=== PATIENT | female | born 1965 | race Two or more races ===

== ENCOUNTER 2025-08-17 08:23 | Emergency (ER) | payer MEDICAID, OTHER ==
[~2025-08-17] VITALS: Ht 167.6 cm; Wt 126.0 kg
--- NOTE | 2025-08-17 08:33 | ED.PDOC ---
HPI (NEURO) HPI Comments 60 year old female presents to the ED with a chief complaint of RT sided weakness onset 08/14/25. Spouse states patient began experiencing headache, RT sided weakness on 3 days ago, yesterday around 12:00, she began experiencing slurred speech, loss of strength of RT arm. Last night, patient was not able to hold piece of bread with RT hand. Denies any PMHx as well as head injury, nausea, vomiting, diarrhea, chest pain, shortness of breath, fever, chills, dysuria, hematuria. No other symptoms or modifying factors present at this time. 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 Family History Family History: Reviewed,noncontributory to illness, No family hx of Cancer, No family hx of DM, No family hx of Heart aaron, No family hx of HTN, No family hx ofKidney aaron, No family hx of Liver aaron, No family hx of Lung aaron, No family hx of Stroke Social History Smoker: Non-Smoker Alcohol: Denies ETOH Use Drugs: Denies Drug Use Lives In: Home Constitutional: denies: chills, diaphoresis, fatigue, fever, malaise, sweats, weakness, others EENTM: denies: blurred vision, double vision, ear bleeding, ear discharge, ear drainage, ear pain, ear ringing, eye pain, eye redness, hearing loss, mouth pain, mouth swelling, nasal discharge, nose bleeding, nose congestion, nose pain, photophobia, tearing, throat pain, throat swelling, voice changes, others Respiratory: denies: cough, hemoptysis, orthopnea, SOB at rest, shortness of breath, SOB with excertion, stridor, wheezing, others Cardiovascular: denies: chest pain, dizzy spells, diaphoresis, Dyspnea on exer tion, edema, irregular heart beat, left arm pain, lightheadedness, palpitations, PND, syncope, others Gastrointestinal: denies: abdomen distended, abdominal pain, blood streaked bowels, constipated, diarrhea, dysphagia, difficulty swallowing, hematemesis, melena, nausea, poor appetite, poor fluid intake, rectal bleeding, rectal pain, vomiting, others Genitourinary: denies: abnormal vagina bleeding, burning, dyspareunia, dysuria, flank pain, frequency, hematuria, incontinence, pain, , vagina discharge, urgency, others Neurological: reports: right sided weakness, speech problems; denies: dizziness, fainting, headache, left sided numbness, left sided weakness, numbness, paresthesia, pre-existing deficit, right sided numbness, seizure, tingling, tremors, weakness, others Musculoskeletal: denies: back pain, gout, joint pain, joint swelling, muscle pain, muscle stiffness, neck pain, others Integumetry: denies: bruises, change in color, change in hair/nails, dryness, laceration, lesions, lumps, rash, wounds, others Allergic/Immunocompromised: denies: Difficulty Healing, Frequent Infections, Hives, Itching, others Hematologic/Lymphatic: denies: anemia, blood clots, easy bleeding, easy bruising, swollen glands, others Endocrine: denies: excessive hunger, excessive sweating, excessive thirst, excessive urination, flushing, intolerance to cold, intolerance to heat, unexplained weight gain, unexplained weight loss, others Psychiatric: denies: anxiety, bipolar disorder, depression, hopeless, panic disorder, schizophrenia, sleepless, suicidal, others All Other Systems: Reviewed and Negative Physical Exam General Appearance: Normal HEENT: Normal ENT Inspection, Pharynx Normal, TMs Normal Neck: Full Range of Motion, Non-Tender, Normal, Normal Inspection Respiratory: Chest Non-Tender, Lungs Clear, No Accessory Muscle Use, No Respiratory Distress, Normal Breath Sounds Cardiovascular: No Edema, No JVD, No Murmur, No Gallop, Normal Peripheral Pulses, Regular Rate/Rhythm Breast Exam: Deferred Gastrointestinal: No Organomegaly, Non Tender, No Pulsatile Mass, Normal Bowel Sounds, Soft Genitalia: Deferred Pelvic: Deferred Rectal: Deferred Extremities: No calf tenderness, Normal capillary refill, Normal inspection, Normal range of motion, Non-tender, No pedal edema Musculoskeletal : Apperance: Normal Neurologic: Alert, avaya engineer II-XII nml as Tested, No Motor Deficits, Normal Affect, Normal Mood, No Sensory Deficits Cerebellar Function: Normal Reflexes: Normal Skin: Dry, Normal Color, Warm Lymphatic: No Adenopathy Was a procedure done? Was a procedure done?: No Differential Diagnosis (SZ) Seizure: Hyperventilation, Hypoxemia, Idiopathic, Mass Lesion CVA: Encephalopathy, Hypoglycemia, Hypoxemia General Weakness: Encephalopathy, Hypovolemia, Myocardial infarction Headache: Post Lumber Puncture X-Ray, Labs, Meds, VS Vital Signs Date Time Temp Pulse Resp B/P (MAP) Pulse Ox O2 Delivery O2 Flow Rate FiO2 08/17/25 10:30 66 18 169/79 (109) 96 08/17/25 08:36 109 08/17/25 08:34 97.9 68 18 172/78 (109) 98 97.9 08/17/25 08:34 68 18 98 Room Air* 0 21 08/17/25 08:28 99.7 67 18 172/78 99.7 Lab Test 08/17/25 11:10 08/17/25 10:02 08/17/25 09:02 08/17/25 08:31 Range/Units Urine Color Pending Urine Clarity Pending Urine pH Pending Urine Specific [place] Pending Urine Protein Pending Urine Ketones Pending Urine Blood Pending Urine Nitrite Pending Urine Bilirubin Pending Urine Urobilinogen Pending Urine Leukocyte Esterase Pending Urine RBC Pending Urine Microscopic WBC Pending Urine Squamous Epithelial Cells Pending Urine Bacteria Pending Urine Glucose Pending Troponin I High Sensitivity < 3 L < 3 L </=34 ng/L White Blood Count 8.9 4.4-10.8 10^3/uL Red Blood Count 4.39 4.0-5.20 10^6/uL Hemoglobin 12.8 12.2-16.2 g/dL Hematocrit 38.0 36.0-46.0 % Mean Corpuscular Volume 86.5 80.0-100.0 fL Mean Corpuscular Hemoglobin 29.2 28.0-32.0 pg Mean Corpuscular Hemoglobin Concent 33.7 32.0-36.0 g/dL Red Cell Distribution Width 13.3 11.8-14.3 % Platelet Count 226 140-450 10^3/uL Mean Platelet Volume 9.4 6.9-10.8 fL Neutrophils (%) (Auto) 74.8 37.0-80.0 % Lymphocytes (%) (Auto) 17.0 10.0-50.0 % Monocytes (%) (Auto) 7.2 0.0-12.0 % Eosinophils (%) (Auto) 0.3 0.0-7.0 % Basophils (%) (Auto) 0.7 0.0-2.0 % Neutrophils # (Auto) 6.7 1.6-8.6 10 ^3/uL Lymphocytes # (Auto) 1.5 0.4-5.4 10 ^3/uL Monocytes # (Auto) 0.6 0-1.3 10 ^3/uL Eosinophils # (Auto) 0 0-0.8 10 ^3/uL Basophils # (Auto) 0.1 0-0.2 10 ^3/uL Nucleated Red Blood Cells 0.0 % Prothrombin Time 10.9 9.3-11.8 sec Prothrombin Time INR 1.03 0.9-1.15 Activated Partial Thromboplast Time 25.6 24.5-34.5 SEC Sodium Level 138 136-145 mmol/L Potassium Level 3.6 3.5-5.1 mmol/L Chloride Level 102 98-107 mmol/L Carbon Dioxide Level 26 20-31 mmol/L Anion Gap 10 5-15 Blood Urea Nitrogen 10 9-23 mg/dL Creatinine 0.69 0.550-1.02 mg/dL Glomerular Filtration Rate Calc 101 >90 mL/min BUN/Creatinine Ratio 14.5 10.0-20.0 Serum Glucose 109 H 74-106 mg/dL Lactic Acid Level 1.0 0.4-2.0 mmol/L Calcium Level 9.1 8.7-10.4 mg/dL Magnesium Level 2.2 1.6-2.6 mg/dL Total Bilirubin 0.6 0.2-1.0 mg/dL Aspartate Amino Transferase (AST) 13 13-40 U/L Alanine Aminotransferase (ALT) 16 7-40 U/L Alkaline Phosphatase 95 46-116 U/L B-Type Natriuretic Peptide 45.99 0-100 pg/mL Total Protein 7.7 5.7-8.2 g/dL Albumin 4.6 3.2-4.8 g/dL POC Glucose 116 H 70-106 mg/dl Current Medications Medications (Trade) Dose Ordered Sig/Leatha Route Start Time Stop Time Status Last Admin Acetaminophen (Tylenol Tablet) 650 mg ONCE ONCE PO 08/17/25 10:00 08/17/25 10:01 DC 08/17/25 10:08 Time of 1ST Reevaluation: 08:55 Reevaluation 1ST: Unchanged Patient Education/Counseling: Diagnosis, Treatment, Prognosis Family Education/Counseling: Diagnosis, Treatment, Prognosis Departure 1 Departure Time of Disposition: 11:45 (Patient with concern for CVA however patient is out of the window for acute neurologic intervention. We will admit patient for further workup and expert consultation) Impression: Primary Impression: Right arm weakness Additional Impressions: Difficulty with speech Generalized weakness Disposition: ADMITTED INPATIENT Admit to: Tele Condition: Guarded Critical Care Note Critical Care Time?: Yes Critical care comment: Concern for CVA Authorized and Performed by: Chandler Pereira MD Total critical care time: Approximately 38 minutes Due to a high probability of clinically significant, life threatening deterioration, the patient required my highest level of preparedness to intervene emergently and I personally spent this critical care time directly and personally managing the patient. This critical care time included obtaining a history; examining the patient; pulse oximetry; ordering and review of studies; arranging urgent treatment with development of a management plan; evaluation of patient's response to treatment; frequent reassessment; and, discussions with other providers. This critical care time was performed to assess and manage the high probability of imminent, life-threatening deterioration that could result in multi-organ failure. It was exclusive of separately billable procedures and treating other patients and teaching time. Please see my other sections and the rest of the note for further information on patient assessment and treatment. Stability Stability form required: No Heart Score Heart Score: Heart Score Response (Comments) Value History N/A 0 EKG N/A 0 Age N/A 0 Risk Factors N/A 0 Troponin N/A 0 Total 0 I personally scribed for CHANDLER PEREIRA MD ([email or web address]) on 08/17/25 at 08:33. Electronically submitted by Fiorella Clinton ([email or web address]). CHANDLER PEREIRA MD Aug 17, 2025 08:33
[2025-08-17 08:34] VITALS: PULSE 68; RESP 18; O2SAT 98
--- NOTE | 2025-08-17 08:54 | DVH ---
CHEST RADIOGRAPH Indication: right arm weakness Technique: Single frontal view of the chest was obtained COMPARISON: None FINDINGS: Lines and Tubes: None Lungs: Increased interstitial prominence. Pleura: No effusion. No pneumothorax. Cardiomediastinal contours: Unremarkable Bones: Unremarkable IMPRESSION: Mild pulmonary vascular congestion.
[2025-08-17 09:22] LABS: Hematocrit 38.0 % (36.0-46.0); Hemoglobin 12.8 g/dL (12.2-16.2); Mean Corpuscular Hemoglobin 29.2 pg (28.0-32.0); Mean Corpuscular Volume 86.5 fL (80.0-100.0); Nucleated Red Blood Cells % 0.0 %
--- NOTE | 2025-08-17 09:35 | DVH ---
EXAM: CT ANGIO HEAD/NECK HISTORY: right arm numbness, slurred speach COMPARISON: Noncontrast CT scan of the head from earlier same day. TECHNIQUE: High-resolution helical CT images of the head and neck were performed with IV contrast uti lizing CTA protocol. Sagittal and coronal reformatted images and 3-D MIP reconstructions were obtaine d. This CT exam was performed using one or more of the following dose reduction techniques: Automated exposure control, adjustment of the mA and/or kV according to patient size, or use of iterative kathy nstruction technique. Radiation Dose: CT Dose: CTDI volume is 30.49 mGy. Dose-length product is 1304.85 mGy*cm FINDINGS: [place]: No evidence of aneurysmal dilatation or significant stenosis about the ci rcle of [place]. The bilateral MCAs and ACAs are widely patent. There is origin of the bilateral posterior cerebral arteries. There is a small right [employer]QUE[employer]CTION [employer] OPERATOR P1 segment. The left [employer] P1 segment is not d efinitely visualized. The cavernous and petrous ICAs are patent. Right carotid system: No significant stenosis of the CCA, ICA, or ECA origin. Left carotid system: No significant stenosis of the CCA, ICA, or ECA origin. Vertebrobasilar: The bilateral vertebral arteries and basilar artery are patent. Miscellaneous: There are multiple dental caries. There is [id number] cervical degenerative disc disease, greatest at C5-C6. There is palatine and lingual tonsillar hypertrophy with mild narrowing of the upper airway, without evidence of tonsillar abscess IMPRESSION: 1. No aneurysmal dilatation or significant stenosis about the [place]. 2. origin of the bilateral posterior cerebral arteries, which is a normal vascular variant. The re is associated small right and nonvisualized left [employer] OPER[employer] P1 segments. 3. No significant stenosis of the bilateral cervical carotid arteries or vertebral arteries. 4. Multiple dental caries. Recommend outpatient dental consultation.
[2025-08-17] MEDS: IOHEXOL 350 MG/ML 100ML IJ ONE (09:39)
[2025-08-17 09:40] LABS: INR 1.03 (0.9-1.15); Partial Thromboplastin Time 25.6 SEC (24.5-34.5); Prothrombin Time 10.9 sec (9.3-11.8)
[2025-08-17 09:41] LABS: Alanine Aminotransferase 16 U/L (7-40); Albumin 4.6 g/dL (3.2-4.8); Alkaline Phosphatase 95 U/L (46-116); Anion Gap 10 (5-15); BUN/Creatinine Ratio 14.5 (10.0-20.0); Blood Urea Nitrogen 10 mg/dL (9-23); Calcium 9.1 mg/dL (8.7-10.4); Carbon Dioxide 26 mmol/L (20-31); Chloride 102 mmol/L (98-107); Magnesium 2.2 mg/dL (1.6-2.6); Potassium 3.6 mmol/L (3.5-5.1); Sodium 138 mmol/L (136-145); Total Protein 7.7 g/dL (5.7-8.2)
[2025-08-17 09:42] LABS: Bilirubin, Total 0.6 mg/dL (0.2-1.0)
[2025-08-17 09:45] LABS: Glucose 109 mg/dL (74-106)
[2025-08-17] MEDS: ACETAMINOPHEN 325 MG TAB PO ONE (10:08)
[2025-08-17 11:45] LABS: Urine Protein, UAD TRACE (Negative)
--- NOTE | 2025-08-17 15:01 | DVH ---
CT STROKE CTH INDICATION: right arm weakness, slurred speach EXAM DATE: 08/17/2025 08:44 AM COMPARISON: CT ANGIO HEAD/NECK on DOS: 08/17/25 RADIATION DOSE: CTDIvol: 20 mGy, DLP: 1304 mGy*cm PROCEDURE: CT scans of the head were obtained from the vertex to the skull base. Sagittal and coronal reconstructions were provided. All CT scans at this medical facility are performed using dose modulation techniques as appropriate t o a performed exam including the following: Automated exposure control was utilized; adjustment of th e MA and/or KV according to patient size; and use of iterative reconstruction technique. FINDINGS: Beam hardening artifact limits evaluation. There is sulcal and ventricular prominence. The brain otherwise shows normal morphology and connors-white matter differentiation, without intracranial hemorrhage, extra-axial fluid collection, mass effect or acute large vessel infarct. The ventricles a re normal in size. The basal cisterns are patent. The skull and visible facial bones are intact. The paranasal sinuses, mastoid air cells and middle ear cavities are well-aerated. The soft tissues of th e scalp are unremarkable. IMPRESSION: No acute intracranial abnormality.
[2025-08-17] MEDS ORDERED: NITROGLYCERIN 0.4 MG SL TAB SL PRN (15:15)
[2025-08-17] MEDS ORDERED: DOCUSATE SOD 100 MG CAP PO PRN (15:15)
[2025-08-17] MEDS ORDERED: MORPHINE SULFATE INJ 2 MG/ml SYRG IV PRN (15:15)
[2025-08-17] MEDS ORDERED: ONDANSETRON HCL 4 MG/2 ML VIAL IV PRN (15:15)
[2025-08-17] MEDS ORDERED: HYDROcodone-ACET 5/325MG TAB PO PRN (15:15)
[2025-08-17] MEDS ORDERED: ACETAMINOPHEN 325 MG TAB PO PRN (15:15)
[2025-08-17] MEDS ORDERED: SODIUM CHLORIDE 0.9% 1,000 ML IV SCH (15:15)
--- NOTE | 2025-08-17 15:53 | DVH ---
Carotid Duplex Date: 08/17/2025 03:30 PM Clinical History: Possible Stroke Comparison: CT STROKE CTH on DOS: 08/17/25, CT ANGIO HEAD/NECK on DOS: 08/17/25 Technique: Duplex Doppler evaluation of the extracranial carotid and vertebral arteries including col or Doppler and spectral/pulsed waveform analysis was performed. Findings: Velocities and ratios within normal limits. Bilateral antegrade vertebral artery flow IMPRESSION: No hemodynamically significant stenosis noted in the right carotid system. No hemodynamically significant stenosis noted in the left carotid system. Reference: Radiology 2003; [id number]
--- NOTE | 2025-08-17 16:47 | DVH ---
PROCEDURE: MRI BRAIN HEAD WO CONTRAST Indication: Possible stroke COMPARISON: 08/17/2025 TECHNIQUE: Multiplanar multisequence images of the brain are obtained. FINDINGS: Diffusion restriction within the lisandra centered more towards the left measuring 2.5 x 1.4 x 2.9 cm. Th ere is associated extensive increased T2 signal within the lisandra, bilateral midbrain and cerebral pedu ncles. There is susceptibility signal within the lisandra. Mild periventricular and subcortical white matter T2 and FLAIR hyperintense changes. The ventricles are midline and normal in size. Cisterns patent. Major intracranial flow voids intact . Orbits, retrobulbar spaces unremarkable. Mastoids well pneumatized. Mucosal thickening ethmoids IMPRESSION: Acute /subacute infarction within the lisandra, more lateralized towards the left. Extensive T2/edema signal within the lisandra, midbrain and bilateral cerebral peduncles, likely secondar y to the acute infarction. Recommend MRI brain with contrast exclude any type of underlying lesion/ma ss. Susceptibility signal within the lisandra, likely representing hemorrhagic conversion. Other findings as described. Critical Result: Stroke Alert Findings discussed with CHANDLER BILLINGSLEY at 08/17/2025 04:48 PM, and acknowledged receipt and understandi ng of the findings. ..
[2025-08-17 17:04] VITALS: BP 158/79; PULSE 70; RESP 17; TEMP 98; O2SAT 97
== END 2025-08-17 16:18 | disposition short-term general hospital (02) ==
LOC: ER 08:23 → UNDOADMIN 15:01 → OVERFLOW 15:01 → ER 16:18
DX: R53.1 Weakness (principal); R47.81 Slurred speech; R51.9 Headache, unspecified; R06.02 Shortness of breath; Z79.899 Other long term (current) drug therapy
CPT/HCPCS: 36415; 70450; 70496; 70498; 70551; 71045; 80053; 81001; 82947; 83605; 83735; 83880; 84484; 85025; 85610; 85730; 87040; 92610; 93886; 97163; 99285; Q9967; 82962